=== PATIENT | male | born 1940 | race African-American/Black ===

== ENCOUNTER 2017-09-24 11:58 | Inpatient (IN) | payer OTHER ==
[~2017-09-24] VITALS: Ht 190.5 cm; Wt 77.1 kg
[2017-09-24] MEDS ORDERED: KEPP250 PO (12:06)
[2017-09-24] MEDS ORDERED: LEVETIRACETAM 500MG PREMIX 100 ML IV ONE ×2 (15:00)
[2017-09-24 15:45] LABS: BASOPHILS % 0.6 % (0.0-2.0); EOSINOPHILS % 0.5 % (0.0-5.0); HEMATOCRIT. 31.3 % (42.0-52.0); HEMOGLOBIN. 10.4 g/dL (14.0-18.0); LYMPHOCYTES % 16.4 % (20.0-50.0); MEAN CORPUSCULAR HEMOGLOBIN 29.3 pg (28.0-32.0); MEAN CORPUSCULAR VOLUME 88.2 fL (80.0-94.0); MEAN PLATELET VOLUME 10.6 fl (7.4-10.4); MONOCYTES % 6.2 % (2.0-8.0); NEUTROPHILS % 76.3 % (40.0-76.0); PLATELET 187 x1000/uL (130-400); RED BLOOD CELL COUNT 3.55 mill/uL (4.7-6.1)
[2017-09-24 15:48] LABS: INR 1.1; PROTHROMBIN TIME 11.8 sec (9.4-11.6)
[2017-09-24 15:56] LABS: CHLORIDE 104 mEq/L (98-107)
[2017-09-24 16:02] LABS: TROPONIN I 0.15 ng/mL (0.00-0.04)
[2017-09-24] MEDS: MIDODRINE HCL 5MG TABLET PO SCH (17:00)
[2017-09-24 22:44] VITALS: BP 135/84
[2017-09-25] VITALS: BP 158/64
[2017-09-25] MEDS ORDERED: ACETAMINOPHEN 650MG SUPP PR PRN (00:30)
[2017-09-25] MEDS ORDERED: ACETAMINOPHEN 325MG TABLET PO PRN (00:30)
[2017-09-25] MEDS ORDERED: CLONIDINE 0.1MG TABLET PO PRN (00:30)
[2017-09-25] MEDS ORDERED: GUAIFENESIN 200MG/10ML SUGAR FREE UDC PO PRN (00:30)
[2017-09-25] MEDS ORDERED: NA PHOS,M-B/NA PHOS,DI-BA ENEMA 118ML PR PRN (00:30)
[2017-09-25] MEDS ORDERED: MAGNESIUM/ALUMINUM HYDROXIDE/SIMETHICONE 30ML UDC PO PRN (00:30)
[2017-09-25] MEDS ORDERED: IPRATROPIUM/ALBUTEROL 0.5-3(2.5)MG/3ML NEB INH PRN (00:30)
[2017-09-25] MEDS ORDERED: ONDANSETRON HCL 4MG/2ML VIAL IV PRN (00:30)
[2017-09-25] MEDS ORDERED: DOCUSATE SODIUM 100MG CAPSULE PO PRN (00:30)
[2017-09-25] MEDS ORDERED: DIPHENHYDRAMINE 50MG/ML VIAL IV PRN (00:30)
[2017-09-25] MEDS ORDERED: HYDROCODONE/ACETAMINOPHEN 5/325MG TABLET PO PRN (00:30)
[2017-09-25] MEDS ORDERED: ACETAMINOPHEN 650MG/20.3ML UDC GT PRN (00:30)
[2017-09-25 04:00] VITALS: BP 177/72
[2017-09-25] MEDS ORDERED: SODIUM CHLORIDE 0.9% INJ 3ML FLUSH IVF SCH (06:00)
[2017-09-25 07:40] LABS: HEMATOCRIT 26.7 % (42.0-52.0); HEMOGLOBIN 9.3 g/dL (14.0-18.0); MEAN CORPUSCULAR HEMOGLOBIN 30.6 pg (28.0-32.0); MEAN CORPUSCULAR VOLUME 87.4 fL (80.0-94.0); PLATELET 171 x1000/uL (130-400); RED BLOOD CELL COUNT 3.05 mill/uL (4.7-6.1)
[2017-09-25 08:00] VITALS: BP 117/60
[2017-09-25 08:20] LABS: CLARITY URINE CLEAR (CLEAR); COLOR URINE DARK YELLOW (YELLOW); KETONES URINE TRACE (NEGATIVE); LEUKOCYTE ESTERASE URINE NEGATIVE (NEGATIVE); NITRITE URINE NEGATIVE (NEGATIVE); OCCULT BLOOD URINE NEGATIVE (NEGATIVE); PROTEIN URINE NEGATIVE (NEGATIVE); SPECIFIC GRAVITY URINE 1.025 (1.005-1.030); UROBILINOGEN URINE 0.2 E.U./dL (0.2-1.0)
[2017-09-25] MEDS ORDERED: ENOXAPARIN 40MG/0.4ML SYR SUBCUT SCH (09:00)
[2017-09-25] MEDS ORDERED: LEVETIRACETAM 500MG/5ML CUP PO SCH (09:00)
[2017-09-25 09:23] LABS: *AMPHETAMINES SCREEN URINE NEGATIVE (NEGATIVE); *BARBITURATES SCREEN URINE NEGATIVE (NEGATIVE); *BENZODIAZEPINES SCREEN URINE NEGATIVE (NEGATIVE); *COCAINE SCREEN URINE NEGATIVE (NEGATIVE); CANNABINOID URINE SCREEN NEGATIVE (NEGATIVE); METHADONE URINE SCREEN NEGATIVE (NEGATIVE); OPIATES URINE SCREEN NEGATIVE (NEGATIVE); PHENCYCLIDINE URINE SCREEN NEGATIVE (NEGATIVE)
[2017-09-25 09:30] LABS: CHLORIDE 105 mEq/L (98-107); CREATINE KINASE 291 IU/L (39-308); TROPONIN I 0.17 ng/mL (0.00-0.04)
[2017-09-25] MEDS: MIDODRINE HCL 5MG TABLET PO SCH (09:30)
[2017-09-25] MEDS ORDERED: CARB-33 PO (11:21)
[2017-09-25] MEDS ORDERED: MIDO5TAB PO (11:22)
[2017-09-25] MEDS ORDERED: HYDR-4133 PO (11:23)
[2017-09-25] MEDS ORDERED: CARB1TAB2 PO (11:32)
[2017-09-25] MEDS ORDERED: RISP0.2514 PO (11:41)
[2017-09-25] MEDS ORDERED: CALC500T6 PO (11:41)
[2017-09-25] MEDS ORDERED: ENTA200T2 PO (11:43)
[2017-09-25] MEDS ORDERED: SENN-76 PO (11:44)
[2017-09-25] MEDS ORDERED: ASPI-1159 PO (11:45)
[2017-09-25 12:00] VITALS: BP 116/53
[2017-09-25] MEDS ORDERED: ASPIRIN 81MG EC TABLET PO SCH (15:00)
[2017-09-25] MEDS ORDERED: LEVETIRACETAM 500MG TABLET PO SCH (15:00)
[2017-09-25] MEDS ORDERED: SENNOSIDES/DOCUSATE SOD 8.6/50MG TABLET PO PRN (15:00)
[2017-09-25] MEDS ORDERED: HYDRALAZINE HCL 10MG TABLET PO PRN (15:00)
[2017-09-25 16:00] VITALS: BP 134/69
[2017-09-25 16:40] VITALS: BP 134/60
[2017-09-25] MEDS ORDERED: ENTACAPONE 200MG TABLET PO SCH (17:00)
[2017-09-25] MEDS ORDERED: CARBIDOPA/LEVODOPA 25/250MG TABLET PO SCH (17:00)
[2017-09-25] MEDS ORDERED: CALCIUM CARBONATE 500MG TABLET CHEW PO SCH (18:00)
[2017-09-25] MEDS ORDERED: RISPERIDONE 0.5MG TABLET PO SCH (21:00)
[2017-09-26] MEDS ORDERED: MIDODRINE HCL 5MG TABLET PO SCH (09:00)
== END 2017-09-25 17:59 | disposition short-term general hospital (02) | DRG 100 ==
LOC: ER 12:04 → 5WST 19:29 → EDBEDREQ 19:40 → ENRESERV 21:20
PROVIDERS: ADMIT Family Medicine; ATTEND Family Medicine
DX: R56.9 Unspecified convulsions (principal); R53.2 Functional quadriplegia; I21.4 Non-ST elevation (NSTEMI) myocardial infarction; G20 Parkinson's disease; D64.9 Anemia, unspecified; E86.0 Dehydration; F03.90 Unspecified dementia, unspecified severity, without behavioral disturbance, psychotic disturbance, mood disturbance, and anxiety; I10 Essential (primary) hypertension; Z79.899 Other long term (current) drug therapy; Z79.82 Long term (current) use of aspirin; Z74.01 Bed confinement status
CPT/HCPCS: 36415; 70450; 70551; 71045; 80053; 80305; 81003; 82550; 83036; 83880; 84484; 85025; 85027; 85610; 87040; 93005; 96374; 99285; J1650; J1953